=== PATIENT | male | born 1940 | race African-American/Black ===

== ENCOUNTER → 2017-02-11 | Outpatient (CLI) | payer MEDICARE, OTHER ==
--- NOTE | ~2017-02-11 | CR63 ---
[facility] A Service of [facility] [place] RADIOLOGY TEXT RESULTS PATIENT: ARINA SHANE LOCATION: [facility] : 40 UNIT #: [id number] AGE: [address]: Lakshmi Keys MD SEX: M ORDER DR: [id number] [facility] [address] [place], [place] [address] [id number] O MR#: [id number] Acc #: [id number] NAME: ARINA SHANE. : 1940 SEX: M STUDY DATE/TIME: 02/11/2017 10:55 UNIT: [facility] ROOM: STUDY DESCRIPTION: CR Chest 2 View Attending Physician: Lakshmi Keys M.D. Referring Physician: Lakshmi Keys M.D. Ordering Physician: Lakshmi Keys M.D. Primary Care Physician: Lakshmi Keys M.D. MEDICAL IMAGING REPORT This report is preliminary unless electronic signature is present EXAM PA and lateral chest, 02/11/2017 HISTORY Shortness of breath since November 2016. COPD. Former smoker. Hypertension. COMPARISON AP portable chest radiograph, 06/23/2013. FINDINGS There is moderate generalized cardiac enlargement with signs of prior median sternotomy. The heart size appears stable. Central pulmonary vasculature appears enlarged and indistinct, and there is suspected mild central interstitial thickening in both lungs which is new since 2012, raising the possibility of mild interstitial edema. No pleural effusion or pneumothorax or dense lung consolidation is seen. Lung bases are partially attenuated by the patient's body habitus on the AP view but appear clear on the lateral view. IMPRESSION 1. Stable cardiomegaly. 2. Mild central vascular congestive changes are present and there is questionable mild interstitial edema. 3. No dense lung consolidations. 4. Study is limited by patient's body habitus. Dictated by... Mary Ennis M.D. THIS IS AN ELECTRONICALLY VERIFIED REPORT Mayr Ennis M.D. at 02/12/2017 8:56 AM [facility]/simon [facility] A Service of [facility] [place] RADIOLOGY TEXT RESULTS PATIENT: ARINA SHANE LOCATION: [facility] #: [id number] : 40 UNIT #: [id number] AGE: [address]: Lakshmi Keys MD SEX: M ORDER DR: TD: 02/11/2017 16:32 JOB #: [id number] MEDICAL IMAGING REPORT Page 1 of 1 COPY
== END | disposition home or self-care (01) ==
LOC: CRAD 10:26
DX: J44.1 Chronic obstructive pulmonary disease with (acute) exacerbation (principal); I51.7 Cardiomegaly
CPT/HCPCS: 71020

== ENCOUNTER → 2017-02-26 | Outpatient (CLI) | payer MEDICARE, OTHER ==
--- NOTE | ~2017-02-26 | CR63 ---
[facility] A Service of [facility] & [facility] RADIOLOGY TEXT RESULTS PATIENT: ARINA SHANE LOCATION: [facility] : 40 UNIT #: [id number] AGE: [address]: Lakshmi Keys MD SEX: M ORDER DR: [id number] [facility] [address] [place], [place] [address] [id number] O MR#: [id number] Acc #: [id number] NAME: ARINA SHANE : 1940 SEX: M STUDY DATE/TIME: 02/26/2017 9:55 UNIT: [facility] ROOM: STUDY DESCRIPTION: CR Chest 2 View Attending Physician: Lakshmi Keys M.D. Referring Physician: Lakshmi Keys M.D. Ordering Physician: Lakshmi Keys M.D. Primary Care Physician: Lakshmi Keys M.D. MEDICAL IMAGING REPORT This report is preliminary unless electronic signature is present EXAM Chest PA and lateral, 02/26/2017 HISTORY Increasing shortness of breath and cough for 1 month, COPD exacerbation, diabetes, coronary artery disease and CABG. Previous smoker. Benign essential hypertension. FINDINGS The heart is enlarged but stable compared with 02/11/2017 status post median sternotomy. Stable mild pulmonary vascular congestion. No airspace consolidation is seen. There are no pleural effusions. IMPRESSION Stable cardiomegaly and mild pulmonary vascular congestion compared with 02/11/2017. Dictated by... Boris Harrison M.D. THIS IS AN ELECTRONICALLY VERIFIED REPORT Boris Harrison M.D. at 02/27/2017 7:46 AM [facility]/simon TD: 02/26/2017 12:52 JOB #: [id number] MEDICAL IMAGING REPORT Page 1 of 1 COPY
== END | disposition home or self-care (01) ==
LOC: CRAD 09:43
DX: J44.1 Chronic obstructive pulmonary disease with (acute) exacerbation (principal); I51.7 Cardiomegaly; R09.89 Other specified symptoms and signs involving the circulatory and respiratory systems
CPT/HCPCS: 71020